=== PATIENT | female | born 1965 | race African-American/Black ===

== ENCOUNTER → 2017-11-18 | Outpatient (CLI) | payer BC, OTHER ==
--- NOTE | 2017-11-19 08:47 | RAD ---
DATE: 11/18/2017 EXAM: MAMMO PINA SCREENING BILATERAL HISTORY: Routine screening COMPARISON: 11/05/2016, 11/03/2016, 10/02/2015 This study was interpreted with the benefit of Computerized Aided Detection (CAD). The breast parenchyma shows scattered fibroglandular densities. Breast parenchyma level B. FINDINGS: 2-D and 3-D tomosynthesis imaging was performed in CC and MLO projections. No new or enlarging breast densities are seen. A faint cluster of microcalcifications is now identified projected with the inferior aspect of the left breast on the oblique view. They are less clearly seen on the cc view but probably lie near the midline. IMPRESSION: Faint cluster of microcalcifications in the left breast. Diagnostic mammograms to include magnification and straight mediolateral views are suggested for further evaluation. BI-RADS CATEGORY: 0 INCOMPLETE: NEEDS ADDITIONAL IMAGING EVALUATION AND/OR PRIOR MAMMOGRAMS FOR COMPARISON. RECOMMENDED FOLLOW-UP: ADD ADDITIONAL IMAGING PQRS compliance statement: Patient information was entered into a reminder system with a target due date for the next mammogram. Mammography is a sensitive method for finding small breast cancers, but it does not detect them all and is not a substitute for careful clinical examination. A negative mammogram does not negate a clinically suspicious finding and should not result in delay in biopsying a clinically suspicious abnormality. "Our facility is accredited by the [employer] Mammography [employer]."
== END | disposition home or self-care (01) ==
LOC: MAMMO 15:32
PROVIDERS: ATTEND Obstetrics & Gynecology
DX: Z12.31 Encounter for screening mammogram for malignant neoplasm of breast (principal); R92.0 Mammographic microcalcification found on diagnostic imaging of breast
CPT/HCPCS: 77063; 77067

== ENCOUNTER → 2017-12-11 | Outpatient (CLI) | payer BC, OTHER ==
--- NOTE | 2017-12-11 15:58 | RAD ---
DATE: 12/11/2017 EXAM: DIGITAL DIAGNOSTIC LT HISTORY: Microcalcifications COMPARISON: 11/18/2017 This study was interpreted with the benefit of Computerized Aided Detection (CAD). The breast parenchyma shows scattered fibroglandular densities. Breast parenchyma level B. FINDINGS: Additional views of the left breast were obtained and correlated with the screening images. They confirm the presence of a faint cluster of microcalcifications at the 6:00 location. These are best demonstrated on the magnification MLO view. There are 3 or 4 granular appearing microcalcifications in a somewhat linear configuration. In retrospect these may have been present on an old study from 10/02/2015 with little if any change. Their relative stability suggests a benign etiology. There are a few other faint scattered microcalcifications in the left breast. IMPRESSION: Probably benign left breast microcalcifications. Follow-up left mammography in 6 months and bilateral mammograms in one year is suggested BI-RADS CATEGORY: 3 PROBABLY BENIGN FINDING(S)-SHORT INTERVAL FOLLOW-UP SUGGESTED RECOMMENDED FOLLOW-UP: 6M 6 MONTH FOLLOW-UP PQRS compliance statement: Patient information was entered into a reminder system with a target due date for the next mammogram. Mammography is a sensitive method for finding small breast cancers, but it does not detect them all and is not a substitute for careful clinical examination. A negative mammogram does not negate a clinically suspicious finding and should not result in delay in biopsying a clinically suspicious abnormality. "Our facility is accredited by the [employer] Mammography [employer]."
== END | disposition home or self-care (01) ==
LOC: MAMMO 15:20
PROVIDERS: ATTEND Obstetrics & Gynecology
DX: R92.8 Other abnormal and inconclusive findings on diagnostic imaging of breast (principal)
CPT/HCPCS: 77065

== ENCOUNTER → 2018-06-14 | Outpatient (CLI) | payer BC, OTHER ==
--- NOTE | 2018-06-14 15:28 | RAD ---
DATE: 06/14/2018 EXAM: MAMMO PINA DIAG LT HISTORY: Follow-up microcalcifications COMPARISON: 11/18/2017 This study was interpreted with the benefit of Computerized Aided Detection (CAD). Breast Density: SCATTERED The breast parenchyma shows scattered fibroglandular densities. Breast parenchyma level B. FINDINGS: 2-D and 3-D tomosynthesis imaging was performed in CC and MLO projections. No new or enlarging breast densities are seen. A faint cluster of microcalcifications at the 6:00 location is unchanged. IMPRESSION: Stable mammograms. Follow-up bilateral mammography in 6 months and then at yearly intervals is suggested. BI-RADS CATEGORY: 3 PROBABLY BENIGN FINDING(S)-SHORT INTERVAL FOLLOW-UP SUGGESTED RECOMMENDED FOLLOW-UP: 6M 6 MONTH FOLLOW-UP PQRS compliance statement: Patient information was entered into a reminder system with a target due date for the next mammogram. Mammography is a sensitive method for finding small breast cancers, but it does not detect them all and is not a substitute for careful clinical examination. A negative mammogram does not negate a clinically suspicious finding and should not result in delay in biopsying a clinically suspicious abnormality. "Our facility is accredited by the [employer] Mammography [employer]."
== END | disposition home or self-care (01) ==
LOC: MAMMO 14:54
PROVIDERS: ATTEND Obstetrics & Gynecology
DX: R92.1 Mammographic calcification found on diagnostic imaging of breast (principal)
CPT/HCPCS: 77065; G0279; 77061

== ENCOUNTER → 2018-12-27 | Outpatient (CLI) | payer BC, OTHER ==
--- NOTE | 2018-12-27 16:30 | RAD ---
DATE: 12/27/2018 EXAM: MAMMO PINA ABBE WAGONERAT HISTORY: Abnormal mammogram. 6 month follow-up and annual evaluation. COMPARISON: 11/18/2017 screen mammographic examination and 06/14/2018 left lateral mammographic examination This study was interpreted with the benefit of Computerized Aided Detection (CAD). Breast Density: SCATTERED The breast parenchyma shows scattered fibroglandular densities. Breast parenchyma level B. FINDINGS: Left breast calcifications of interest are stable. No suspicious new calcification. No mass or distortion. IMPRESSION: Benign-appearing calcifications. BI-RADS CATEGORY: 1 NEGATIVE RECOMMENDED FOLLOW-UP: 12M 12 MONTH FOLLOW-UP PQRS compliance statement: Patient information was entered into a reminder system with a target due date in one year for the next mammogram. Mammography is a sensitive method for finding small breast cancers, but it does not detect them all and is not a substitute for careful clinical examination. A negative mammogram does not negate a clinically suspicious finding and should not result in delay in biopsying a clinically suspicious abnormality. "Our facility is accredited by the [employer] Mammography [employer]."
== END | disposition home or self-care (01) ==
LOC: MAMMO 15:25
PROVIDERS: ATTEND Internal Medicine
DX: R92.8 Other abnormal and inconclusive findings on diagnostic imaging of breast (principal)
CPT/HCPCS: 77066; G0279; 77062

== ENCOUNTER → 2020-08-23 | Outpatient (CLI) | payer BC, OTHER ==
--- NOTE | 2020-08-27 12:16 | RAD ---
DATE: 08/23/2020 3:30 PM EXAM: MAMMO PINA SCREENING BILATERAL HISTORY: Screening COMPARISON: 12/27/2018 Bilateral CC and MLO views of the breasts were performed. Bilateral breast tomosynthesis was performed in CC and MLO projections. This study was interpreted with the benefit of Computerized Aided Detection (CAD). FINDINGS: Breast Density: SCATTERED The breast parenchyma shows scattered fibroglandular densities. Breast parenchyma level B No suspicious masses, microcalcifications or architectural distortion is present to suggest malignancy in either breast. The visualized axillae are unremarkable. IMPRESSION: No mammographic evidence of malignancy. BI-RADS CATEGORY: 1 NEGATIVE RECOMMENDED FOLLOW-UP: 12M 12 MONTH FOLLOW-UP Annual screening mammography is recommended, unless clinically indicated sooner based on symptoms or change in physical exam. PQRS compliance statement: Patient information was entered into a reminder system with a target due date for the next mammogram. Mammography is a sensitive method for finding small breast cancers, but it does not detect them all and is not a substitute for careful clinical examination. A negative mammogram does not negate a clinically suspicious finding and should not result in delay in biopsying a clinically suspicious abnormality. "Our facility is accredited by the [employer] Mammography [employer]."
== END ==
LOC: MAMMO 15:20
PROVIDERS: ATTEND Obstetrics & Gynecology
DX: Z12.31 Encounter for screening mammogram for malignant neoplasm of breast (principal); N64.89 Other specified disorders of breast
CPT/HCPCS: 77063; 77067